=== PATIENT | female | born 1980 | race Caucasian/White ===

== ENCOUNTER 2022-01-20 10:17 | Outpatient (REF) | payer OTHER, SELFPAY ==
--- NOTE | ~2022-01-20 | MM_ITS ---
EXAMINATION: MM SCREENING DIGITAL BREAST TOMOSYNTHESIS, BILATERAL CLINICAL INFORMATION: Screening. Asymptomatic. The lifetime risk of breast cancer based on the Tyrer-Cuzick Model is 31.6%. COMPARISON: Mammography: None. TECHNIQUE: Digital breast tomosynthesis is performed in both the craniocaudal and mediolateral oblique views along with computer-aided detection (CAD). Synthesized 2-D images are generated from the tomosynthesis. FINDINGS: The breasts are extremely dense, which lowers the sensitivity of mammography (ACR BI-RADS breast composition Category d). About the deep lateral aspect of the right breast approximately 8 cm from the nipple, there is a suspicious region of architectural distortion containing numerous microcalcifications. Spot magnification views are recommended for further evaluation as well as ultrasound. No suspicious abnormal dominant mass or grouping of microcalcifications identified within the left breast. MM/MM tomosynthesis screening BI IMPRESSION: Suspicious region of density and microcalcifications deep lateral aspect of the right breast for further evaluation. ASSESSMENT: BI-RADS 0: Incomplete - Need Additional Imaging Evaluation. RECOMMENDATION: 1. Additional views of the right breast. 2. Targeted ultrasound if warranted after review of the additional views. 3. Radiology department staff will contact the patient for additional imaging.
== END 2022-01-20 10:18 | disposition home or self-care (01) ==
LOC: HO.MAMMO 10:17
PROVIDERS: PCP Internal Medicine; Visit Provider Student in an Organized Health Care Education/Training Program
DX: Z12.31 Encounter for screening mammogram for malignant neoplasm of breast (principal)
CPT/HCPCS: 77063; 77067

== ENCOUNTER 2022-02-09 15:01 | Outpatient (REF) | payer OTHER, SELFPAY ==
--- NOTE | ~2022-02-09 | MM_ITS ---
EXAMINATION: MM DIAGNOSTIC DIGITAL MAMMOGRAPHY, RIGHT CLINICAL INFORMATION: Recall from screening for question of increased calcifications posterior outer right breast. Family history breast cancer (mother age 39, paternal grandmother age 40, paternal aunt age 50). TC score 32%. COMPARISON: Mammography: 01/20/2022, outside mammography 02/16/2021, 12/12/2019, 10/10/2018 ([facility]). TECHNIQUE: Digital mammography is performed in the following views: Spot magnification right CC, spot magnification right MLO. FINDINGS: The breasts are heterogeneously dense, which may obscure small masses (ACR BI-RADS breast composition Category c). Additional views right breast demonstrate no mass or architectural abnormality or developing density from prior studies. Some punctate calcifications posterior outer breast are stable when compared with outside exams 2020 and 2019. There are no increasing calcifications. Results are discussed with the patient at time of visit. Additional adjunct screening with breast MRI and availability of genetic testing was discussed as well. MM/MM added views RT IMPRESSION: Additional views right breast show no significant change from prior outside exams. ASSESSMENT: BI-RADS 2: Benign RECOMMENDATION: -Routine annual mammography screening. -The lifetime risk of breast cancer based on the Tyrer-Cuzick Model is 32%. Additional annual adjunct screening with breast MRI may be of benefit in women with a risk score of 20% or greater and dense breast parenchymal pattern. Consideration of genetic testing may be considered as well. This patient's information was entered into a reminder system with a target due date for their next mammogram.
== END 2022-02-09 15:02 | disposition home or self-care (01) ==
LOC: HO.MAMMO 15:01
PROVIDERS: PCP Internal Medicine; Visit Provider Internal Medicine
DX: R92.1 Mammographic calcification found on diagnostic imaging of breast (principal)
CPT/HCPCS: 77065

== ENCOUNTER 2022-03-08 13:45 | Outpatient (REF) | payer OTHER, SELFPAY ==
--- NOTE | ~2022-03-08 | MR_ITS ---
EXAMINATION: MR BREAST WITHOUT AND WITH CONTRAST, BILATERAL CLINICAL INFORMATION: High-risk screening. COMPARISON: No prior MRI. TECHNIQUE: Imaging was performed with a dedicated breast coil. Prior to the administration of contrast, bilateral axial T1 and bilateral axial T2 weighted sequences were obtained. After the uneventful administration of?6.5 mL of Gadavist, dynamic contrast-enhanced VIBRANT series through the breasts in the axial plane were performed. Subtracted images were performed and reviewed. A delayed sagittal sequence through both breasts was acquired. Additionally, CAD post-processing, including maximum intensity projections, 3-D reconstructions and kinetic analysis, were performed an independent workstation and reviewed by the interpreting radiologist is a portion of this exam. FINDINGS: The patient's fibroglandular tissue demonstrates moderate background enhancement. LEFT BREAST: No suspicious masslike or non-masslike enhancement. No abnormal skin thickening or nipple retraction. No abnormal architectural distortion. Review of the T2 weighted images demonstrates no fibrocystic changes or dilated ducts. Review of kinetic images reveals no additional findings. RIGHT BREAST: No suspicious masslike or non-masslike enhancement. No abnormal skin thickening or nipple retraction. No abnormal architectural distortion. Review of the T2 weighted images demonstrates no fibrocystic changes or dilated ducts. Review of kinetic images reveals no additional findings. There is no suspicious internal mammary chain or axillary adenopathy. Limited views of the chest and abdomen are unremarkable. MR/MR breast BI wo/w con IMPRESSION: No MR specific evidence of malignancy. ASSESSMENT: LEFT BREAST: BI-RADS 1-Negative RIGHT BREAST: BI-RADS 1-Negative RECOMMENDATIONS: Clinical follow-up. Continued annual mammographic surveillance. Further breast MRI as risk factors dictate.
== END 2022-03-08 13:46 | disposition home or self-care (01) ==
LOC: HO.MRI 13:45
PROVIDERS: Visit Provider Internal Medicine
DX: Z91.89 Other specified personal risk factors, not elsewhere classified (principal)
CPT/HCPCS: 77049; A9585

== ENCOUNTER 2023-01-26 10:59 | Outpatient (REF) | payer OTHER, SELFPAY ==
--- NOTE | ~2023-01-26 | MM_ITS ---
EXAMINATION: MM SCREENING DIGITAL BREAST TOMOSYNTHESIS, BILATERAL CLINICAL INFORMATION: Screening. Asymptomatic. The lifetime risk of breast cancer based on the Tyrer-Cuzick Model is 38.2%. Additional annual screening with breast MRI may be of benefit in women with a score of 20% or greater. COMPARISON: Mammography: 02/09/2022 and studies dating back to 10/10/2018. TECHNIQUE: Digital breast tomosynthesis is performed in both the craniocaudal and mediolateral oblique views along with computer-aided detection (CAD). Synthesized 2D images are generated from the tomosynthesis. FINDINGS: The breasts are extremely dense, which lowers the sensitivity of mammography (ACR BI-RADS breast composition Category d). On right mediolateral oblique projection there is question of a circumscribed density about the deep superior aspect versus superimposed dense breast parenchyma. Spot compression view is recommended and if there is persistence of this finding than ultrasound can be performed. MM/MM tomosynthesis screening BI IMPRESSION: Right breast density superiorly for further evaluation as described. ASSESSMENT: BI-RADS 0: Incomplete - Need additional imaging evaluation. RECOMMENDATION: 1. Additional views of the right breast. 2. Targeted ultrasound if warranted after review of the additional views. 3. Radiology department staff will contact the patient for additional imaging. This patient's information was entered into a reminder system with a target due date for their next mammogram.
== END 2023-01-26 11:00 | disposition home or self-care (01) ==
LOC: HO.MAMMO 10:59
PROVIDERS: Visit Provider Internal Medicine
DX: Z12.31 Encounter for screening mammogram for malignant neoplasm of breast (principal)
CPT/HCPCS: 77063; 77067

== ENCOUNTER 2023-03-03 09:03 | Outpatient (REF) | payer OTHER, SELFPAY ==
--- NOTE | ~2023-03-03 | MM_ITS ---
EXAMINATION: MM DIAGNOSTIC DIGITAL BREAST TOMOSYNTHESIS, RIGHT CLINICAL INFORMATION: Recall from screening for parenchymal asymmetry posterior upper right breast on MLO view. COMPARISON: Mammography: 01/26/2023, 02/09/2022, 01/20/2022; outside mammography 02/16/2021 and 10/10/2018 ([employer]). TECHNIQUE: Digital breast tomosynthesis is performed. 2D images are generated from the tomosynthesis. The following views are obtained: Spot MLO, standard ML. FINDINGS: The breasts are heterogeneously dense, which may obscure small masses (ACR BI-RADS breast composition Category c). Breast tissue composition borders on extremely dense. There is oval parenchymal asymmetry again noted posterior upper breast approximately 10 cm from nipple, more conspicuous when compared with prior studies. The area resides within the mid outer tomography stack. No architectural abnormality. No abnormal calcifications. Recommend additional evaluation with targeted ultrasound. MM/MM tomosynthesis added views R IMPRESSION: Parenchymal asymmetry posterior upper right breast. ASSESSMENT: BI-RADS 0: Incomplete - Need Additional Imaging Evaluation RECOMMENDATION: Targeted right breast ultrasound. This patient's information was entered into a reminder system with a target due date for their next mammogram.
== END 2023-03-03 09:04 | disposition home or self-care (01) ==
LOC: HO.MAMMO 09:03
PROVIDERS: PCP Internal Medicine; Visit Provider Student in an Organized Health Care Education/Training Program
DX: N64.89 Other specified disorders of breast (principal)
CPT/HCPCS: 77061; 77065

== ENCOUNTER 2023-03-07 11:31 | Outpatient (REF) | payer OTHER, SELFPAY ==
--- NOTE | ~2023-03-07 | US_ITS ---
EXAMINATION: US DIAGNOSTIC ULTRASOUND BREAST, RIGHT CLINICAL INFORMATION: Parenchymal asymmetry posterior upper right breast. Strong family history breast cancer, TC score 38%. COMPARISON: Mammography: 03/03/2023, 01/26/2023, 02/09/2022, 01/20/2022; outside mammography 02/16/2021 and 10/10/2018 ([facility]). Bilateral breast MR 03/08/2022. TECHNIQUE: Ultrasound right breast is targeted to the upper and outer quadrants. Patient is imaged supine and semiupright with right arm up and arm down. Grayscale imaging and color Doppler are performed without and with harmonics. FINDINGS: There are grouped simple fibrocystic changes 10:00 position 9-10 cm from nipple measuring approximately 2.5 cm across. This appears to correspond to the area of asymmetry on mammography. There are also cysts noted on MRI in this area slightly smaller in size in 2021. The cysts are anechoic and there is increased through-transmission of sound and no associated color flow. There is no focal suspicious finding. There is no solid mass, architectural abnormality, duct ectasia, or edema in the soft tissue planes. Results are discussed with the patient at time of visit. Patient notes that she has appointment for genetic testing in [place] this May. Additional adjunct screening with breast MRI was also discussed. US/US breast RT limited IMPRESSION: -Benign simple fibrocystic changes 10:00 right breast corresponding to asymmetry on mammography. ASSESSMENT: BI-RADS 2: Benign RECOMMENDATION: -Routine annual mammography screening. -The lifetime risk of breast cancer based on the Tyrer-Cuzick Model is 38%. Additional annual adjunct screening with breast MRI may be of benefit in women with a risk score of 20% or greater and dense breast tissue composition on mammography. This patient's information was entered into a reminder system with a target due date for their next mammogram.
== END 2023-03-07 11:32 | disposition home or self-care (01) ==
LOC: HO.MAMMO 11:31
PROVIDERS: PCP Internal Medicine; Visit Provider Internal Medicine
DX: N64.89 Other specified disorders of breast (principal)
CPT/HCPCS: 76642

== ENCOUNTER → 2024-07-16 15:30 | Outpatient (BNV) | payer OTHER, SELFPAY | PROVIDERS: Visit Provider Internal Medicine | DX: Z12.31 Encounter for screening mammogram for malignant neoplasm of breast (principal) | CPT/HCPCS: 77063; 77067 ==

== ENCOUNTER 2024-07-16 15:53 | Outpatient (REF) | payer OTHER, SELFPAY ==
--- NOTE | ~2024-07-16 | MM_ITS ---
EXAMINATION: MM SCREENING DIGITAL BREAST TOMOSYNTHESIS, BILATERAL CLINICAL INFORMATION: Screening. Asymptomatic. COMPARISON: Mammography: Comparison is made with available priors TECHNIQUE: Digital breast mammography with tomosynthesis is performed in both the craniocaudal and mediolateral oblique views along with computer-aided detection (CAD). FINDINGS: The breasts are heterogeneously dense, which may obscure small masses (ACR BI-RADS breast composition Category c). There are no significant masses, abnormal calcifications, or other abnormalities. MM/MM tomosynthesis screening BI IMPRESSION: No mammographic evidence of malignancy. ASSESSMENT: BI-RADS BI-RADS 1 - Negative RECOMMENDATION: Routine annual mammography screening. 1 year F/U This examination should not preclude the clinical evaluation of a suspicious palpable abnormality. This patient's information was entered into a reminder system with a target due date for their next mammogram. Electronically signed by: Tiki Santana DO 07/29/2024 05:22 PM EDT
== END 2024-07-16 15:54 | disposition home or self-care (01) ==
LOC: HO.MAMMO 15:53
PROVIDERS: Visit Provider Internal Medicine
DX: Z12.31 Encounter for screening mammogram for malignant neoplasm of breast (principal)
CPT/HCPCS: 77063; 77067

== ENCOUNTER → 2025-07-28 08:00 | Outpatient (BNV) | payer OTHER, SELFPAY | PROVIDERS: PCP Family Medicine; Visit Provider Internal Medicine | DX: Z12.31 Encounter for screening mammogram for malignant neoplasm of breast (principal) | CPT/HCPCS: 77063; 77067 ==

== ENCOUNTER 2025-07-28 08:29 | Outpatient (REF) | payer OTHER, SELFPAY ==
--- OUTSIDE RECORDS SUMMARY | 2025-07-28 08:47 | XMS_ITS | Encounter Summary ---
Author Organization [facility] Address [address] [facility] [address] [place] [phone] Phone Care Team Providers Care Flame Annealing Machine Operator Name Role Phone Scottie German MD Primary Care Provider Encounter Details Date Type Department Care Team (Late st Contact Info) Description 01/27/2021 Ancillary Orders Virtual Department [address] [place] [address] Scottie German MD [address] [place] [phone] Breast screening Social History Tobacco Use Types Packs/Day Years Used Date Smoking Tobacco: Never Assessed Comments No Sex and Gender Information Value Date Recorded Sex Assigned at Female 08/21/2021 10:09 PM EST Legal Sex Female 9:23 PM EDT Gender Identity Female 08/21/2021 10:09 PM EST Sexual Orientation Not on file documented as of this encounter Plan of Treatment Not on file documented as of this encounter Results * (ABNORMAL) BI MAMMOGRAM SCREENING WITH TOMOSYNTHESIS WITH CAD (BILATERAL) (02/16/2021 2:20 PM EDT) Anatomical Region Laterality Modality Breast Left, Breast Right, Breast Bilateral Bila teral Mammography 02/16/2021 2:30 PM EDT Impressions 02/16/2021 2:33 PM EDT Recommend recalling the patient for increasing right breast microcalcifications which may represent benign milk of calcium. Radiology department will attempt to recall the patient. Recall views: Spot mag right CC. Spot mag right ML views. BI-RADS CATEGORY: 0 - Incomplete. Need additional imaging evaluation. DENSITY: The breast tissue is extremely dense, which lowers the sensitivity of mammography. LEFT RECOMMENDATION DUE DATE: 12 Months Left Mammography Screening RIGHT RECOMMENDATION DUE DATE: 1 Month Right Additional Imaging Narrative 02/16/2021 2:33 PM EDT 40-year-old female with no current breast symptoms. Comparison made to previous on 11/22/2019 and as far back as 12/30/2016. Interpretation made in conjunction with computer-aided detection and tomosynthesis. The breasts are extremely dense, which lowers the sensitivity of mammography. Mild increase in number of the posterior right upper-outer quadrant microcalcifications. No mass or distortion. Procedure Note Melvin Ruiz MD - 02/16/2021 40-year-old female with no current breast symptoms. Comparison made toprevious on 11/22/2019 and as far back as 12/30/2016. Interpretation madein conjunction with computer-aided detection and tomosynthesis. The breasts are extremely dense, which lowers the sensitivity ofmammography. Mild increase in number of the posterior right upper-outerquadrant microcalcifications. No mass or distortion. IMPRESSION: Recommend recalling the patient for increasing right breastmicrocalcifications which may represent benign milk of calcium. Radiologydepartment will attempt to recall the patient. Recall views: Spot mag right CC. Spot mag right ML views. BI-RADS CATEGORY: 0 - Incomplete. Need additional imaging evaluation. DENSITY: The breast tissue is extremely dense, which lowers thesensitivity of mammography. LEFT RECOMMENDATION DUE DATE: 12 Months Left Mammography Screening RIGHT RECOMMENDATION DUE DATE: 1 Month Right Additional Imaging us Scottie German MD IMG MG EXAMS Final R esult documented in this encounter Visit Diagnoses Diagnosis Breast screening Breast screening, unspecified Breast screening Breast screening, unspecified documented in this encounter Care Teams Flame Annealing Machine Operator Relationship Specialty Start Date End Date Scottie German MD [address] [place] [id number] PCP - General Internal Medicine 12/12/19 documented as of this encounter Additional Source Comments The information contained in this document represents components of the legal health record. It is not the complete legal health record.[facility]
--- OUTSIDE RECORDS SUMMARY | 2025-07-28 08:47 | XMS_ITS | Encounter Summary ---
Author Organization [facility] Address [address] [facility] [address] [place] [address] Phone Care Team Providers Care Cold Rolling Machine Setter Name Role Phone Pcp, Unknown Primary Care Provider Jeniffer Oates MD Primary Care Provider [phone] Scottie German MD Primary Care Provider Encounter Details Date Type Department Care Team (Late st Contact Info) Description 08/06/2018 Ancillary Orders Virtual Department [address] [place] [address] Jeniffer Rosario MD [address] [place] [address] Breast screening Social History Tobacco Use Types Packs/Day Years Used Date Smoking Tobacco: Never Assessed Comments Unknown Sex and Gender Information Value Date Recorded Sex Assigned at Female 08/21/2021 10:09 PM EST Legal Sex Female 9:23 PM EDT Gender Identity Female 08/21/2021 10:09 PM EST Sexual Orientation Not on file documented as of this encounter Plan of Treatment Not on file documented as of this encounter Results * BI MAMMOGRAM SCREENING WITH TOMOSYNTHESIS WITH CAD (BILATERAL) (10/10/2018 2:52 PM EST) Anatomical Region Laterality Modality Breast Left, Breast Right, Breast Bilateral Bila teral Mammography 10/10/2018 3:01 PM EST Impressions 10/10/2018 3:15 PM EST No mammographic evidence of malignancy. Recommend routine annual surveillance. BI-RADS CATEGORY: 2 - Benign finding. DENSITY: The breast tissue is heterogeneously dense, an appearance which lowers the sensitivity of mammography. POS - CDHMAMA Narrative 10/10/2018 3:15 PM EST 38-year-old female with no current breast symptoms. Comparison made to previous on 12/30/2016. Interpretation made in conjunction with computer-aided detection and tomosynthesis. The breasts are heterogeneously dense, which may obscure small masses. Stable scattered bilateral microcalcifications. There are no suspicious masses, areas of architectural distortion, or suspicious clusters of microcalcifications. Procedure Note Ck Hussein MD - 10/10/2018 38-year-old female with no current breast symptoms. Comparison made toprevious on 12/30/2016. Interpretation made in conjunction withcomputer-aided detection and tomosynthesis. The breasts are heterogeneously dense, which may obscure small masses.Stable scattered bilateral microcalcifications. There are no suspicious masses, areas of architectural distortion, orsuspicious clusters of microcalcifications. IMPRESSION: No mammographic evidence of malignancy. Recommend routine annualsurveillance. BI-RADS CATEGORY: 2 - Benign finding. DENSITY: The breast tissue is heterogeneously dense, an appearance whichlowers the sensitivity of mammography. POS - CDHMAMA Jeniffer Rosario MD IMG MG EXAMS Final Result documented in this encounter Visit Diagnoses Diagnosis Breast screening Breast screening, unspecified Breast screening Breast screening, unspecified documented in this encounter Care Teams Cold Rolling Machine Setter Relationship Specialty Start Date End Date Pcp, Unknown PCP - General 08/13/18 08/28/18 Jeniffer Rosario MD [address] [place] [id number] PCP - General Family Medicine 08/29/18 12/11/19 Scottie German MD [address] [place] [address] PCP - General Internal Medicine 12/12/19 documented as of this encounter Additional Source Comments The information contained in this document represents components of the legal health record. It is not the complete legal health record.[facility]
--- OUTSIDE RECORDS SUMMARY | 2025-07-28 08:47 | XMS_ITS | Encounter Summary ---
Author Organization [facility] Address [address] [place] [address] Phone Care Team Providers Care Brick Yard Hand Name Role Phone Scottie German MD Primary Care Provider Encounter Details Date Type Department Care Team (Late st Contact Info) Description 05/27/2021 Ancillary Orders Virtual Department [address] [place] [address] Scottie German MD [address] [place] [address] Abnormal mammogram Social History Tobacco Use Types Packs/Day Years [...] on file documented as of this encounter Visit Diagnoses Diagnosis Abnormal mammogram Abnormal mammogram, unspecified documented in this encounter Care Teams Brick Yard Hand Relationship Specialty Start Date End Date Scottie German MD [address] [place] [address] PCP - General Internal Medicine 12/12/19 documented as of this encounter Additional Source Comments The information contained in this document represents components of the legal health record. It is not the complete legal health record.[facility]
--- OUTSIDE RECORDS SUMMARY | 2025-07-28 08:47 | XMS_ITS | Encounter Summary ---
Author Organization [facility] Address [address] [facility] [address] [place] [phone] Phone Care Team Providers Care Manager Eligibility Name Role Phone Jeniffer Rosario MD Primary Care Provider [phone] Scottie German MD Primary Care Provider Encounter Details Date Type Department Care Team (Late st Contact Info) Description 11/08/2019 Ancillary Orders Virtual Department [address] [place] [address] Scottie German MD [address] [place] [address] Breast screening Social History Tobacco Use Types [...] MAMMOGRAM SCREENING WITH TOMOSYNTHESIS WITH CAD (BILATERAL) (11/22/2019 3:49 PM EST) Anatomical Region Laterality Modality Breast Left, Breast Right, Breast Bilateral Bila teral Mammography 11/25/2019 7:08 PM EST Impressions 11/25/2019 7:17 PM EST RIGHT BREAST: Focal asymmetry in the upper outer quadrant at approximately 7 cm from the nipple. Patient will be called back for additional imaging including spot compression and targeted ultrasound. LEFT BREAST: Negative, no evidence of malignancy. Normal interval follow-up is recommended in 12 months. Bi-RADS: BI-RADS CATEGORY: 0 - Incomplete. Need additional imaging evaluation. DENSITY: The breast tissue is heterogeneously dense, an appearance which lowers the sensitivity of mammography. RIGHT RECOMMENDATION DUE DATE: 1 Month Additional Imaging LEFT RECOMMENDATION DUE DATE: Annual Mammography Screening POS - [id number] Narrative 11/25/2019 7:17 PM EST STUDY: Bilateral screening mammography with tomosynthesis and CAD TECHNIQUE: Bilateral full-field digital screening mammography is obtained and read in conjunction with computer-aided detection. Tomosynthesis as well as 2-D C view imaging were obtained. COMPARISON: Comparison made to October 10, 2018 and December 30, 2016 BREAST COMPOSITION: The breasts are heterogeneously dense, which may obscure small masses. RIGHT BREAST: There is an approximately 1.5 cm focal asymmetry in the upper-outer quadrant of the right breast at approximately 7 cm from the nipple (MLO 17/80 and tomosynthesis CC 24/77), that appears to be associated with calcifications. LEFT BREAST: No significant masses, calcifications or other abnormalities are seen. Procedure Note Coreen Guevara MD - 11/25/2019 STUDY: Bilateral screening mammography with tomosynthesis and CAD TECHNIQUE: Bilateral full-field digital screening mammography is obtainedand read in conjunction with computer-aided detection. Tomosynthesis aswell as 2-D C view imaging were obtained. COMPARISON: Comparison made to October 10, 2018 and December 30, 2016 BREAST COMPOSITION: The breasts are heterogeneously dense, which mayobscure small masses. RIGHT BREAST: There is an approximately 1.5 cm focal asymmetry in theupper-outer quadrant of the right breast at approximately 7 cm from thenipple (MLO 17/80 and tomosynthesis CC 24/77), that appears to beassociated with calcifications. LEFT BREAST: No significant masses, calcifications or other abnormalitiesare seen. IMPRESSION: RIGHT BREAST: Focal asymmetry in the upper outer quadrant at approximately7 cm from the nipple. Patient will be called back for additional imagingincluding spot compression and targeted ultrasound. LEFT BREAST: Negative, no evidence of malignancy. Normal intervalfollow-up is recommended in 12 months. Bi-RADS: BI-RADS CATEGORY: 0 - Incomplete. Need additional imagingevaluation. DENSITY: The breast tissue is heterogeneously dense, an appearance whichlowers the sensitivity of mammography. RIGHT RECOMMENDATION DUE DATE: 1 Month Additional Imaging LEFT RECOMMENDATION DUE DATE: Annual Mammography Screening POS - [id number] Scottie German MD IMG MG EXAMS Final R esult documented in this encounter Visit Diagnoses Diagnosis Breast screening Breast screening, unspecified Breast screening Breast screening, unspecified documented in this encounter Care Teams Manager Eligibility Relationship Specialty Start Date End Date Jeniffer Rosario MD [address] [place] [phone] PCP - General Family Medicine 08/29/18 12/11/19 Scottie German MD [address] [place] [phone] PCP - General Internal Medicine 12/12/19 documented as of this encounter Additional Source Comments The information contained in this document represents components of the legal health record. It is not the complete legal health record.[facility]
--- OUTSIDE RECORDS SUMMARY | 2025-07-28 08:47 | XMS_ITS | Encounter Summary ---
Author Organization [facility] Address [address] [facility] [address] [place] [address] Phone Care Team Providers Care Geography Head Name Role Phone Jeniffer Rosario MD Primary Care Provider [phone] Scottie German MD Primary Care Provider Encounter Details Date Type Department Care Team (Late st Contact Info) Description 11/26/2019 Ancillary Orders Virtual Department 30 [place] [address] Scottie German MD [address] [place] [address] Abnormal mammogram Social History Tobacco Use Types [...] as of this encounter Results * BI US BREAST LIMITED (RIGHT) (12/12/2019 3:11 PM EDT) Anatomical Region Laterality Modality Breast Right, Breast Bilateral Right U ltrasound 12/12/2019 2:52 PM EDT Narrative 12/12/2019 2:55 PM EDT Refer to the same day diagnostic mammogram report. POS - [id number] Procedure Note Ck Hussein MD - 12/12/2019 Refer to the same day diagnostic mammogram report. POS - [id number] Scottie German MD IMG US BREAST Final R esult * BI MAMMOGRAM DIAGNOSTIC WITH TOMOSYNTHESIS NO CAD (RIGHT) (12/12/2019 2:19 PM EDT) Anatomical Region Laterality Modality Breast Right, Breast Bilateral Right M ammography 12/12/2019 2:25 PM EDT Impressions 12/12/2019 3:00 PM EDT No mammographic evidence of malignancy. Recommend return to routine annual surveillance. Findings relayed to the patient via the technologist. BI-RADS CATEGORY: 2 - Benign finding. DENSITY: The breast tissue is heterogeneously dense, an appearance which lowers the sensitivity of mammography. POS - [id number] Narrative 12/12/2019 3:00 PM EDT 39-year-old female who presents for a callback mammogram for a right focal asymmetry. Comparison made to previous on 11/22/2019 and as far back as 12/30/2016. Interpretation made in conjunction with computer-aided detection and tomosynthesis. Spot compression right CC and MLO views obtained. The right breast is heterogeneously dense, which may obscure small masses. No mass is identified. Upper outer quadrant non-clustered punctate microcalcifications are unchanged. Right breast ultrasound was also obtained. No suspicious findings in the upper outer quadrant. Procedure Note Ck Hussein MD - 12/12/2019 39-year-old female who presents for a callback mammogram for a right focalasymmetry. Comparison made to previous on 11/22/2019 and as far back as12/30/2016. Interpretation made in conjunction with computer-aideddetection and tomosynthesis. Spot compression right CC and MLO views obtained. The right breast isheterogeneously dense, which may obscure small masses. No mass isidentified. Upper outer quadrant non-clustered punctatemicrocalcifications are unchanged. Right breast ultrasound was also obtained. No suspicious findings in theupper outer quadrant. IMPRESSION: No mammographic evidence of malignancy. Recommend return to routineannual surveillance. Findings relayed to the patient via thetechnologist. BI-RADS CATEGORY: 2 - Benign finding. DENSITY: The breast tissue is heterogeneously dense, an appearance whichlowers the sensitivity of mammography. POS - [id number] us Scottie German MD IMG MG EXAMS Final R esult documented in this encounter Visit Diagnoses Diagnosis Abnormal mammogram Abnormal mammogram, unspecified Abnormal mammogram Abnormal mammogram, unspecified Abnormal mammogram Abnormal mammogram, unspecified documented in this encounter Care Teams Geography Head Relationship Specialty Start Date End Date Jeniffer Rosario MD [address] [place] [address] PCP - General Family Medicine 08/29/18 12/11/19 Scottie German MD [address] [place] [address] PCP - General Internal Medicine 12/12/19 documented as of this encounter Additional Source Comments The information contained in this document represents components of the legal health record. It is not the complete legal health record.[facility]
--- OUTSIDE RECORDS SUMMARY | 2025-07-28 08:47 | XMS_ITS | Encounter Summary ---
Author Organization [facility] Address [address] [place] [address] Phone Care Team Providers Care Line Lead Name Role Phone Scottie German MD Primary Care Provider Encounter Details Date Type Department Care Team (Late st Contact Info) Description 01/27/2021 Procedure Pass [facility], [facility] [address] [place] [address] Social History Tobacco Use Types Packs/Day Years [...] documented as of this encounter Visit Diagnoses Not on filedocumented in this encounter Care Teams Line Lead Relationship Specialty Start Date End Date Scottie German MD [address] [place] [address] PCP - General Internal Medicine 12/12/19 documented as of this encounter Additional Source Comments The information contained in this document represents components of the legal health record. It is not the complete legal health record.[facility]
--- OUTSIDE RECORDS SUMMARY | 2025-07-28 08:47 | XMS_ITS | Clinical Summary ---
Author Organization [facility] Address [address] [facility] [address] [place] [address] Phone Care Team Providers Care Curber Name Role Phone Scottie German MD Primary Care Provider Allergies No known active allergies Medications No known medications Active Problems No known active problems Family History Medical History Relation Comments Breast cancer Maternal Aunt Breast cancer Maternal Grandmother Breast cancer Mother Relation Status Comments Maternal Aunt @AGE 50 Maternal Grandmother @ AGE 40 RE OCCURANCE @60 Mother @ AGE 39 Social History Tobacco Use Types Packs/Day Years Used Date Smoking Tobacco: Every Day Cigarettes Smokeless Tobacco: Never Alcohol Use Standard Drinks/Week Comments Yes 0 (1 standard drink = 0.6 oz pur e alcohol) rarely Education Answer Date Recorded Are you interested in more education? Not on yosef e 01/27/2023 Are you concerned about learning? Not on file 01/27/2023 No 01/27/2023 No 01/27/2023 Digital Access Answer Date Recorded No 02/27/2023 No 02/27/2023 Reliable internet access at home? Not on file 02/27/2023 Device with a working camera? Not on file Comments No Sex and Gender Information Value Date Recorded Sex Assigned at Female 08/21/2021 10:09 PM EST Legal Sex Female 9:23 PM EDT Gender Identity Female 08/21/2021 10:09 PM EST Sexual Orientation Not on file Last Filed Vital Signs Vital Sign Reading Time Taken Comments Blood Pressure 160/106 08/21/2021 10:07 PM EST Pulse 100 08/21/2021 10:07 PM EST Temperature 36.8 C (98.2 F) 08/21/2021 10:07 PM EST Respiratory Rate 16 08/21/2021 10:07 PM EST Oxygen Saturation 98% 08/21/2021 10:07 PM EST Inhaled Oxygen Concentration - - Weight 74.8 kg (165 lb) 08/21/2021 10:07 PM EST Height 165.1 cm (5' 5 ) 08/21/2021 10:07 PM EST Body Mass Index 27.46 08/21/2021 10:07 PM EST Plan of Treatment Not on file Medical Devices Not on file Insurance [facility] [place] [address] Care Teams Curber Relationship Specialty Start Date End Date Scottie German MD [address] [place] [address] PCP - General Internal Medicine 12/12/19 Additional Source Comments The information contained in this document represents components of the legal health record. It is not the complete legal health record.[facility]
--- OUTSIDE RECORDS SUMMARY | 2025-07-28 08:47 | XMS_ITS | Encounter Summary ---
Author Organization [facility] Address [address] [facility] [place] [address] Phone Care Team Providers Care Air Valve Repairer Name Role Phone Scottie German MD Primary Care Provider Encounter Details Date Type Department Care Team (Late st Contact Info) Description 02/18/2021 Ancillary Orders Virtual Department 30 [place] [address] Scottie German MD 25 [place] [address] Abnormal mammogram Social History Tobacco Use Types [...] unspecified documented in this encounter Care Teams Air Valve Repairer Relationship Specialty Start Date End Date Scottie German MD [address] [place] [address] PCP - General Internal Medicine 12/12/19 documented as of this encounter Additional Source Comments The information contained in this document represents components of the legal health record. It is not the complete legal health record.[facility]
== END 2025-07-28 08:30 | disposition home or self-care (01) ==
LOC: HO.MAMMO 08:29
PROVIDERS: PCP Family Medicine; Visit Provider Family Medicine
DX: Z12.31 Encounter for screening mammogram for malignant neoplasm of breast (principal)
CPT/HCPCS: 77063; 77067

== ENCOUNTER 2025-08-19 08:54 | Outpatient (REF) | payer OTHER, SELFPAY ==
--- NOTE | ~2025-08-19 | MM_ITS ---
EXAMINATION(S): 1. MM DIAGNOSTIC DIGITAL BREAST TOMOSYNTHESIS, BILATERAL 2. TARGETED ULTRASOUND OF THE BILATERAL BREASTS CLINICAL INFORMATION: Callback from screening for bilateral breast findings: Right: Focal asymmetry in the retroareolar region posterior depth with questioned architectural distortion. Left: Focal asymmetry in the upper outer quadrant posterior middle depth. COMPARISON: Comparison made to multiple prior, most recent July 28, 2025, and most remote February 16, 2021. TECHNIQUE: Digital breast tomosynthesis is performed in full field ML 90 degrees along with computer-aided detection (CAD). Synthesized 2D images are generated from the tomosynthesis. Spot compression tomosynthesis were obtained. FINDINGS: BREAST COMPOSITION: The breasts are extremely dense, which lowers the sensitivity of mammography. RIGHT BREAST: On today's images, previously described focal asymmetry in the central (retroareolar region)/lower inner quadrant has similar appearance to multiple prior studies as far back as 2020. Previously seen suggestion of architectural distortion is not demonstrated on today's images. Targeted ultrasound of the right breast was performed at the location of the mammographic finding. The survey throughout the central/lower inner quadrant did not reveal suspicious sonographic findings. Incidental note is made of a 1.5 x 0.6 x 1.5 cm superficial isoechoic oval mass with sonographic features compatible with lipoma. No internal vascularity demonstrated with color Doppler evaluation. LEFT BREAST: On today's images, previously suggested focal asymmetry in the upper outer quadrant has similar appearance to multiple prior studies as far back as 2020. Targeted ultrasound of the left breast was performed at the location of the mammographic finding. The survey throughout the upper outer quadrant did not reveal suspicious sonographic findings. Incidental note is made of a 0.4 x 0.3 x 0.4 cm cyst at 2 o'clock position 9 cm from the nipple. No internal vascularity demonstrated with color Doppler evaluation. MM/MM tomosynthesis diagnostic BI IMPRESSION: RIGHT BREAST: Benign, no mammographic evidence of malignancy. Normal interval follow-up is recommended in 12 months. LEFT BREAST: Benign, no mammographic evidence of malignancy. Normal interval follow-up is recommended in 12 months. ASSESSMENT: BI-RADS: Category 2: Benign RECOMMENDATION: 1 year F/U Results were provided to the patient at time of visit by the technologist. This patient's information was entered into a reminder system with a target due date for their next mammogram. Electronically signed by: Coreen Guevara MD 08/19/2025 10:28 AM NAE
--- OUTSIDE RECORDS SUMMARY | 2025-08-19 18:27 | XMS_ITS | Clinical Summary ---
Author Organization [facility] Address [address] [facility] [address] [place] [address] Phone Care Team Providers Care Director Airport Operations Name Role Phone Scottie German MD Primary [...] file Medical Devices Not on file Insurance [facility] [place] [address] [place] [address] Care Teams Director Airport Operations Relationship Specialty Start Date End Date Scottie German MD [address] [place] [address] PCP - General Internal Medicine 12/12/19 Additional Source Comments The information contained in this document represents components of the legal health record. It is not the complete legal health record.[facility]
--- OUTSIDE RECORDS SUMMARY | 2025-08-19 18:27 | XMS_ITS | Encounter Summary ---
Author Organization [facility] Address [address] [place] [address] Phone Care Team Providers Care Wall Attendant Name Role Phone Scottie German MD Primary Care Provider Encounter Details Date Type Department Care Team (Late st Contact Info) Description 01/27/2021 Procedure Pass [facility], [facility] 30 [place] [address] Social History Tobacco Use Types Packs/Day Years [...] on filedocumented in this encounter Care Teams Wall Attendant Relationship Specialty Start Date End Date Scottie German MD [address] [place] [address] PCP - General Internal Medicine 12/12/19 documented as of this encounter Additional Source Comments The information contained in this document represents components of the legal health record. It is not the complete legal health record.[facility]
--- OUTSIDE RECORDS SUMMARY | 2025-08-19 18:28 | XMS_ITS | Encounter Summary ---
Author Organization [facility] Address [address] [facility] [address] [place] [address] Phone Care Team Providers Care Vending Route Driver Name Role Phone Jeniffer Rosario MD Primary Care Provider [phone] Scottie German MD Primary Care Provider Encounter Details Date Type Department Care Team (Late st Contact Info) Description 11/26/2019 Ancillary Orders Virtual Department 30 [place] [address] Scottie German MD [address] [place] [address] Abnormal mammogram Social History Tobacco Use Types [...] same day diagnostic mammogram report. POS - [id number] Procedure Note Ck Hussein MD - 12/12/2019 Refer to the same day diagnostic mammogram report. POS - [id number] Scottie German MD IMG US BREAST Final [...] unspecified documented in this encounter Care Teams Vending Route Driver Relationship Specialty Start Date End Date Jeniffer Rosario MD [address] [place] [address] PCP - General Family Medicine 08/29/18 12/11/19 Scottie German MD [address] [place] [address] PCP - General Internal Medicine 12/12/19 documented as of this encounter Additional Source Comments The information contained in this document represents components of the legal health record. It is not the complete legal health record.[facility]
--- OUTSIDE RECORDS SUMMARY | 2025-08-19 18:28 | XMS_ITS | Encounter Summary ---
Author Organization [facility] Address [address] [facility] [address] [place] [address] Phone Care Team Providers Care Fashion Model Name Role Phone Scottie German MD Primary Care Provider Encounter Details Date Type Department Care Team (Late st Contact Info) Description 01/27/2021 Ancillary Orders Virtual Department 30 [place] [address] Scottie German MD [address] [place] [address] Breast screening Social History Tobacco Use Types [...] unspecified documented in this encounter Care Teams Fashion Model Relationship Specialty Start Date End Date Scottie German MD [address] [place] [address] PCP - General Internal Medicine 12/12/19 documented as of this encounter Additional Source Comments The information contained in this document represents components of the legal health record. It is not the complete legal health record.[facility]
--- OUTSIDE RECORDS SUMMARY | 2025-08-19 18:29 | XMS_ITS | Encounter Summary ---
Author Organization [facility] Address [address] [place] [address] Phone Care Team Providers Care House Servant Name Role Phone Scottie German MD Primary Care Provider Encounter Details Date Type Department Care Team (Late st Contact Info) Description 05/27/2021 Ancillary Orders Virtual Department 30 [place] [address] Scottie German MD 25 [place] [address] Abnormal mammogram Social History Tobacco Use Types [...] unspecified documented in this encounter Care Teams House Servant Relationship Specialty Start Date End Date Scottie German MD [address] [place] [address] PCP - General Internal Medicine 12/12/19 documented as of this encounter Additional Source Comments The information contained in this document represents components of the legal health record. It is not the complete legal health record.[facility]
--- OUTSIDE RECORDS SUMMARY | 2025-08-19 18:29 | XMS_ITS | Encounter Summary ---
Author Organization [facility] Address [address] [facility] [address] [place] [address] Phone Care Team Providers Care Compliance Clerk Name Role Phone Pcp, Unknown Primary Care Provider Jeniffer Oates MD Primary Care Provider [phone] Scottie German MD Primary Care Provider Encounter Details Date Type Department Care Team (Late st Contact Info) Description 08/06/2018 Ancillary Orders Virtual Department 30 [place] [address] Jeniffer Rosario MD 25 [place] [address] Breast screening Social History Tobacco Use Types [...] unspecified documented in this encounter Care Teams Compliance Clerk Relationship Specialty Start Date End Date Pcp, Unknown PCP - General 08/13/18 08/28/18 Jeniffer Rosario MD [address] [place] [address] PCP - General Family Medicine 08/29/18 12/11/19 Scottie German MD [address] [place] [address] PCP - General Internal Medicine 12/12/19 documented as of this encounter Additional Source Comments The information contained in this document represents components of the legal health record. It is not the complete legal health record.[facility]
--- OUTSIDE RECORDS SUMMARY | 2025-08-19 18:29 | XMS_ITS | Encounter Summary ---
Author Organization [facility] Address [address] [place] [address] Phone Care Team Providers Care Camera Supervisor Name Role Phone Scottie German MD Primary Care Provider Encounter Details Date Type Department Care Team (Late st Contact Info) Description 02/18/2021 Ancillary Orders Virtual Department 30 [place] [address] Scottie German MD [address] [place] [address] Abnormal mammogram Social History Tobacco Use Types [...] unspecified documented in this encounter Care Teams Camera Supervisor Relationship Specialty Start Date End Date Scottie German MD [address] [place] [address] PCP - General Internal Medicine 12/12/19 documented as of this encounter Additional Source Comments The information contained in this document represents components of the legal health record. It is not the complete legal health record.[facility]
--- OUTSIDE RECORDS SUMMARY | 2025-08-19 18:29 | XMS_ITS | Encounter Summary ---
Author Organization [facility] Address [address] [facility] [address] [place] [address] Phone Care Team Providers Care Legal Compliance Officer Name Role Phone Jeniffer Rosario MD Primary Care Provider [phone] Scottie German MD Primary Care Provider Encounter Details Date Type Department Care Team (Late st Contact Info) Description 11/08/2019 Ancillary Orders Virtual Department 30 [place] [address] Scottie German MD 25 [place] [address] Breast screening Social History Tobacco Use Types [...] DUE DATE: Annual Mammography Screening POS - [id number] Narrative 11/25/2019 7:17 PM EST STUDY: Bilateral [...] DUE DATE: Annual Mammography Screening POS - [id number] Scottie German MD IMG MG EXAMS Final R esult documented in this encounter Visit Diagnoses Diagnosis Breast screening Breast screening, unspecified Breast screening Breast screening, unspecified documented in this encounter Care Teams Legal Compliance Officer Relationship Specialty Start Date End Date Jeniffer Rosario MD [address] [place] [address] PCP - General Family Medicine 08/29/18 12/11/19 Scottie German MD [address] [place] [address] PCP - General Internal Medicine 12/12/19 documented as of this encounter Additional Source Comments The information contained in this document represents components of the legal health record. It is not the complete legal health record.[facility]
== END 2025-08-19 08:55 | disposition home or self-care (01) ==
LOC: HO.MAMMO 08:54
PROVIDERS: PCP Family Medicine; Visit Provider Family Medicine
DX: N64.89 Other specified disorders of breast (principal)
CPT/HCPCS: 76642; 77062; 77066

== ENCOUNTER → 2025-08-19 09:00 | Outpatient (BNV) | payer OTHER, SELFPAY | PROVIDERS: PCP Family Medicine; Visit Provider Radiology Body Imaging | DX: R92.8 Other abnormal and inconclusive findings on diagnostic imaging of breast (principal) | CPT/HCPCS: 76642; 77062; 77066 ==